=== PATIENT | male | born 1980 | race Caucasian/White ===

== ENCOUNTER 2017-04-11 12:30 | Emergency (ER) | payer OTHER ==
[~2017-04-11] VITALS: Ht 170.2 cm; Wt 108.5 kg
[~2017-04-11 12:30] MED LIST: ALEVE LIQUID G220 MG PO; BACLOFEN10 MG PO; FLEXERIL10 MG PO; LIDODERM 5% P1 PATCH TD; LORTAB 5-325 M1 EACH PO; MOTRIN800 MG PO; NAPROSYN500 MG PO; NOHOMEMEDS; PREDNISONE10 M1 PO; PREDNISONE10 MG PO; TRAMADOL HCL50 MG PO; ULTRAM50 MG PO
[2017-04-11] MEDS ORDERED: CLOTRIMAZOLE AF15 G2 TP (16:06)
[2017-04-11 16:41] VITALS: BP 118/90
== END 2017-04-11 16:51 | disposition home or self-care (01) ==
LOC: EME 12:30
DX: N48.1 Balanitis (principal); Z88.0 Allergy status to penicillin; F31.9 Bipolar disorder, unspecified; F90.9 Attention-deficit hyperactivity disorder, unspecified type
CPT/HCPCS: 99281; 99284